=== PATIENT | male | born 1990 | race Caucasian/White ===

== ENCOUNTER → 2020-12-04 | Outpatient (CLI) | payer OTHER ==
--- NOTE | 2020-12-04 15:56 | REP ---
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 COMPARISON: None. TECHNIQUE: Axial CT with multiplanar reformations FINDINGS: No acute fracture or malalignment. Vertebral bodies and disc heights are well preserved. No evidence of significant canal or foraminal narrowing. At L5, no pars defects identified. IMPRESSION: Normal examination. No pars defects identified. <Electronically signed by Neil Davis > 12/04/20 [id number]
== END ==
LOC: M RAD 15:15
PROVIDERS: ATTEND Orthopaedic Surgery
DX: M51.36 Other intervertebral disc degeneration, lumbar region (principal)

== ENCOUNTER → 2021-01-16 | Outpatient (CLI) | payer OTHER ==
--- NOTE | 2021-01-17 08:06 | ECHO ---
DATE OF PROCEDURE: 01/16/2021 Age: 30 Gender: Male Height: 183 cm Weight: 71 kg REFERRING PHYSICIAN: Americo Morales M.D. INDICATION: Heart murmur. MEASUREMENTS: IVS 0.8 cm LV 4.8 cm LVPW 0.8 cm LA 3.4 cm Aorta 3.2 cm Left atrial volume index 23 mL/m2 Mitral E wave velocity 106 cm/s Mitral A wave 42 cm/s E prime septal 10.5 cm/s E prime lateral 12.8 cm/s FINDINGS: This study is of good technical quality. Underlying sinus rhythm. Normal LV size with normal LV systolic function. Calculated LVEF 63%. Right ventricle is also of normal size and systolic function. Both atria are normal. Aortic, mitral, and tricuspid valves were well seen and appear normal. Pulmonic valve was not well visualized. No pericardial effusion is noted. Inferior vena cava is dilated, but collapses with inspiration. Aortic root and abdominal aorta appear normal. Aortic arch was not well visualized. Doppler interrogation of aortic valve reveals no stenosis or insufficiency. There is trace mitral and trace tricuspid insufficiency. Mitral inflow pattern and tissue Doppler imaging of the mitral annulus revealed normal diastolic function. CONCLUSIONS: 1. Study is of good technical quality. The patient is in sinus rhythm. 2. Normal LV size with preserved LV systolic and diastolic function. 3. Trace mitral and tricuspid insufficiency. 4. Possibly mildly elevated central venous pressure. 5. Unable to estimate pulmonary artery pressure. MTDD
== END ==
LOC: M CARPUL 12:49
PROVIDERS: ATTEND Internal Medicine
DX: R01.1 Cardiac murmur, unspecified (principal)